=== PATIENT | male | born 1960 ===

== ENCOUNTER 2025-05-10 08:30 | Day surgery (SDC) | payer BC, SELFPAY ==
[2025-04-19 10:16] VITALS: BMI 26.6
[2025-04-19 10:50] LABS: Hematocrit 44.1 % (39.0-52.0); Hemoglobin 14.8 g/dL (13.0-18.0); Mean Corp Hgb Conc. 33.6 g/dL (33.0-37.0); Mean Corpuscular Volume 91.1 fL (80.0-94.0); Nucleated Red Blood Cells % 0 % (-); Platelet Count 202 10^3/uL (130-400); Red Cell Dist. Width 12.4 % (11.5-14.5)
[2025-04-19 10:53] LABS: INR 1.14; PT 15.2 Sec (11.4-14.6)
[2025-04-19 10:59] LABS: ALT (SGPT) 26 U/L (0-50); AST (SGOT) 25 U/L (17-59); Albumin 4.7 g/dl (3.5-5.0); Alkaline Phosphatase 48 U/L (38-126); Blood Urea Nitrogen 16 mg/dl (9-20); Calcium 9.8 mg/dl (8.4-10.2); Carbon Dioxide 24 mmol/L (22-30); Chloride 108 mmol/L (98-107); Estimated Creatinine Clearance 84 ml/min; Glucose 107 mg/dl (70-99); Magnesium 2.2 mg/dl (1.6-2.3); Potassium 4.5 mmol/L (3.5-5.1); Sodium 139 mmol/L (135-145); Total Protein 7.5 g/dl (6.3-8.2); eGFR > 60.00
--- NOTE | 2025-05-08 12:43 | OID.L.PAT ---
Pulmonary Nodule Pat Letter
- -
05/08/25
JESSIE GOLD
[id number] [facility]
[place] [address]
Dear JESSIE,
A pulmonary nodule was seen on an imaging study done by [facility] Radiology. This was reviewed by the [facility] Pulmonary Nodule Advisory Board and the following recommendation was made:
Recommendation: Follow up CT Chest in 12 months.
If you have any questions, please do not hesitate to contact your primary care physician. If you are in need of a Physician, you can go to [email or web address] and click on 'Find a Provider'. Type 'Family Medicine' in the search.
Oncology Nurse Navigator
[facility]
[phone]
--- NOTE | 2025-05-08 12:43 | OID.L.REC ---
Pulmonary Nodule Follow Up
- Recommendation
05/08/25
Pulmonary Nodule Review Recommendations
Your patient, JESSIE GOLD, had a pulmonary nodule seen on an imaging study done on 04/19/2025 in the [facility] Radiology Department.
This was reviewed by the [facility] Pulmonary Nodule Advisory Board and the following recommendation was made:
Recommendation: Follow up CT Chest in 12 months.
If you have any questions, please do not hesitate to contact us.
Sincerely,
Oncology Nurse Navigator
[facility]
[phone]
[2025-05-10] VITALS (21 sets, daily range): BP systolic 127–147; BP diastolic 67–85
[2025-05-10 14:41] LABS: ACT-LR - POC 284 Seconds (116-155)
[2025-05-10 15:04] LABS: ACT-LR - POC 281 Seconds (116-155)
--- NOTE | 2025-05-10 15:13 | ITS.CL.ABL ---
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
Ablation
Procedure Report:
ELECTROPHYSIOLOGY ABLATION STUDY
DATE:: May 10, 2025�����������������������������REFERRING: Dr. Rayshawn Mcgrath
INDICATION: Paroxysmal supraventricular tachycardia in the form of atrial fibrillation.� History of atrial flutter ablation and attempted RV outflow tract PVC ablation with Dr. Mcgrath in 2021. Patient is now noted to have paroxysmal atrial
fibrillation despite flecainide therapy and recurrent PVCs but is asymptomatic from a PVC perspective and has normal ejection fraction.
HISTORY: See H and P.� As above
ANTIARRHYTHMIC DRUG: Flecainide
PRE-PROCEDURE NEHA: No atrial thrombus
PRESENTING RHYTHM: Sinus bradycardia
'TIME-OUT':��called and confirmed.
SEDATION/ANESTHESIA:��provided via the anesthesia department using general anesthesia (LMA).
INTRAVENOUS/ARTERIAL ACCESS:
Right femoral venous - 10 Fr,
Left femoral venous - 8 Fr, 6 Fr
[id number] suture to bilateral femoral veins
Ultrasound guidance for bilateral femoral vein access was utilized by me to obtain access with demonstration of normal anatomy
CHADS-VASC Score:
HAS-Bled Score
PROCEDURE:
1.��A decapolar CS catheter was placed within the CS for mapping and pacing.��This was also used as the reference catheter for the 3-D map. With coronary sinus pacing we mapped the right atrium with the grid catheter. This demonstrated persistent
bidirectional block across the cavotricuspid isthmus with an interest was conduction time of 140 ms bidirectionally. As such we then proceeded with transseptal puncture and ablation of the left atrium.
2. The intracardiac ultrasound catheter was positioned in the RA to identify the FO for targeting of transseptal puncture, assist��in identification of the pulmonary vein ostia, monitoring pre and post ablation pulmonary vein flow velocities,
monitoring for 'bubble' formation during RF application as a sign of thermal injury,��and to monitor for pericardial effusion during mapping and ablation procedure.���Left atrial size, LV ejection fraction, and pulmonary vein flows were monitored
pre and post ablation procedure. The other valves were inspected and found to be free of significant regurgitation or stenosis.
3.��Half of the calculated heparin bolus was administered prior to the first transeptal puncture.��Transseptal puncture was performed to diagnose RA and LA pressure so that safetey of LA mapping and ablation could be further assessed, and to access
the left atrium and pulmonary veins for mapping and ablation.��This entailed advancing an 16.8 Yi sheath, RF wire with dilator into the superior vena cava and withdrawing both (monitoring intracardiac ultrasound, fluoroscopy and tip pressure)
with the tip oriented toward the atrial septum.��The fossa ovalis was engaged (indicated by sudden displacement of the sheath tip as well as tenting of the fossa seen on intracardiac ultrasound).��Left atrial access required a pass with the
Brockenbrough needle extended.��Left atrial catheter position was confirmed by pressure monitoring (RA mean pressure 4 mm Hg and LA mean presure 8 mm Hg), LA saturation (99%),��as well as fluoroscopy.��The sheath was advanced over the dilator and
positioned in the left atrium.��The remainder of the calculated heparin bolus was administered and heparin was
infused to maintain ACT at 300 -350 seconds throughout the case.
4.��RA pacing was performed via the proximal decapolar poles and LA pacing was performed via the distal decapolr poles.
5. A quadrapolar catheter was first positioned at the His position for His Bundle recording which was tagged via the 3-D Navex sytem, and then passed to the RVA for RV pacing and recording.
6. The Penta spline and grid catheter placed in each of the LIPV, LSPV, RSPV and the RIPV.��
7.��Next, a 3-D map was created using Navex.���A 3-D reconstructed CT image was compared to the 3-D Navex map to assist in anatomic interpretation, mapping and ablation.��The CT image and the NavX image were fused.
8. 52 lesions were given with olive and basket pose to each of the 4 pulmonary veins and flower opposed to the roof posterior wall and floor of the left atrium. Entrance and exit block was confirmed in all 4 pulmonary veins as well as the
posterior wall roof and floor of the left atrium. After this repeat EP study demonstrated dual janine physiology with 1 single AV janine echo beat and the patient was noninducible for any other tachyarrhythmias.
9. As above the CTI flutter line from 2021 had persistent bidirectional block which was demonstrated during coronary sinus pacing and mapping with the grid catheter.
TOTAL FLOURO TIME: 12.1 minutes 123 mGy
TOTAL RF DURATION: 0 minutes
REVERSAL OF HEPARIN: 35 mg of protamine, slow IV administration
COMPLICATIONS:
None
Intracardiac US shows no pericardial effusion post ablation.
SUMMARY:��
Complex left atrial mapping and ablation.
Isolation of all 4 pulmonary veins as well as the roof posterior wall and floor of the left atrium and demonstrated the 2021 CTI flutter ablation had persistent bidirectional block. The patient had only 2 PVCs during procedure and we did not map or
ablate the PVC.
RECOMMENDATIONS:
1. Ambulate in 4 hours
2. Resume anticoagulation
3.��Discontinue flecainide and lower atenolol to 25 mg daily
4.��Consider discharge after 8 PM
Copy to: Dr. Rayshanw Mcgrath
--- NOTE | 2025-05-10 16:30 | PTCARENOTE ---
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 B/l groin sites are c/d/i w/ figure 8 sutures intact. Activity restrictions and plan of care reviewed w/ pt and verbalizes understanding. Tele- SB. HR 50s. Oriented pt to room. Currently in bed; call anish w/in reach.
--- NOTE | 2025-05-10 20:43 | PTCARENOTE ---
Received patient at change of shift. SR on the monitor HR in the 90s. VSS on room air. Groins CDI. Pt ambulated in room with nurse. Voided. Discharge instructions given, pt verbalizes understanding. Patient discharged home with .
== END 2025-05-10 20:40 | disposition home or self-care (01) ==
LOC: CATH 08:30
PROVIDERS: ATTENDING PHYSICIAN Internal Medicine Cardiovascular Disease; FAMILY PHYSICIAN Student in an Organized Health Care Education/Training Program; REFERRING PHYSICIAN Specialist
DX: I48.0 Paroxysmal atrial fibrillation (principal); I48.92 Unspecified atrial flutter; R91.1 Solitary pulmonary nodule; Z79.899 Other long term (current) drug therapy; Z79.82 Long term (current) use of aspirin; Z79.01 Long term (current) use of anticoagulants; I25.10 Atherosclerotic heart disease of native coronary artery without angina pectoris; I47.10 Supraventricular tachycardia, unspecified; I49.3 Ventricular premature depolarization
CPT/HCPCS: C1759; C1892; C1769; C1730; C1894; C1732; 36415; 75572; 80053; 83735; 85025; 85347; 85610; 86850; 86900; 86901; 93005; 93656; 93657; C1733; C1766; Q9967